=== PATIENT | male | born 1950 | race Asian ===

== ENCOUNTER 2016-07-23 18:50 | Inpatient (IN) | payer BC ==
[~2016-07-23] VITALS: Ht 162.6 cm; Wt 90.7 kg
[2016-07-23 22:27] VITALS: BP 159/99
[2016-07-23] MEDS ORDERED: ASPIRIN81 MG ORAL (22:39)
[2016-07-23] MEDS ORDERED: ATORVASTATIN CA80 MG ORAL (22:39)
[2016-07-24] VITALS: BP 153/98
[2016-07-24 04:00] VITALS: BP 139/94
[2016-07-24 07:50] LABS: BASOPHILS % (AUTO) 1.2 % (0.0-2.0); EOSINOPHILS % (AUTO) 4.1 % (0.0-3.0); LYMPHOCYTES % (AUTO) 29.6 % (20.0-45.0); MEAN CORPUSCULAR HEMOGLOBIN 32.1 PG (27.0-31.0); MEAN CORPUSCULAR HGB CONC 32.6 G/DL (32.0-36.0); MEAN CORPUSCULAR VOLUME 99 FL (80-99); MEAN PLATELET VOLUME 6.7 FL (6.5-10.1); MONOCYTES % (AUTO) 7.6 % (1.0-10.0); NEUTROPHILS % (AUTO) 57.4 % (45.0-75.0); PLATELET COUNT 212 K/UL (150-450); RED BLOOD COUNT 4.78 M/UL (4.70-6.10); RED CELL DISTRIBUTION WIDTH 12.6 % (11.6-14.8); WHITE BLOOD COUNT 8.2 K/UL (4.8-10.8)
[2016-07-24 08:10] LABS: ANION GAP 11 (5-15); CALCIUM 9.1 mg/dL (8.6-10.2); CARBON DIOXIDE 30 mEQ/L (20-30); CHLORIDE 101 mEQ/L (98-107); CHOLESTEROL 158 mg/dL (< 200); CHOLESTEROL/HDL RATIO 5.4 (3.3-4.4); CREATININE 0.9 mg/dL (0.7-1.2); GLOMERULAR FILTRATION RATE > 60 mL/min (>60); HEMOLYSIS 10; LDL CHOLESTEROL (CALC.) 72 mg/dL (60-99); PHOSPHORUS 4.7 mg/dL (2.5-4.8); POTASSIUM 3.7 mEQ/L (3.4-4.9); SODIUM 142 mEQ/L (135-145)
[2016-07-24 08:30] VITALS: BP 138/102
[2016-07-24 12:00] VITALS: BP 152/93
[2016-07-24 16:00] VITALS: BP 134/86
--- NOTE | 2016-07-24 16:14 | Neurology Progress Note ---
Objective Physical Exam Last Vital Signs Date Time Temp Pulse Resp B/P Pulse Ox O2 Delivery O2 Flow Rate FiO2 07/24/16 12:00 97.9 65 20 152/93 Room Air 07/24/16 08:30 95 Laboratory Tests Test 07/24/16 06:50 White Blood Count 8.2 K/UL (4.8-10.8) Red Blood Count 4.78 M/UL (4.70-6.10) Hemoglobin 15.3 G/DL (14.2-18.0) Hematocrit 47.1 % (42.0-52.0) Mean Corpuscular Volume 99 FL (80-99) Mean Corpuscular Hemoglobin 32.1 PG (27.0-31.0) H Mean Corpuscular Hemoglobin Concent 32.6 G/DL (32.0-36.0) Red Cell Distribution Width 12.6 % (11.6-14.8) Platelet Count 212 K/UL (150-450) Mean Platelet Volume 6.7 FL (6.5-10.1) Neutrophils (%) (Auto) 57.4 % (45.0-75.0) Lymphocytes (%) (Auto) 29.6 % (20.0-45.0) Monocytes (%) (Auto) 7.6 % (1.0-10.0) Eosinophils (%) (Auto) 4.1 % (0.0-3.0) H Basophils (%) (Auto) 1.2 % (0.0-2.0) Sodium Level 142 mEQ/L (135-145) Potassium Level 3.7 mEQ/L (3.4-4.9) Chloride Level 101 mEQ/L (98-107) Carbon Dioxide Level 30 mEQ/L (20-30) Anion Gap 11 (5-15) Blood Urea Nitrogen 14 mg/dL (7-23) Creatinine 0.9 mg/dL (0.7-1.2) Estimat Glomerular Filtration Rate > 60 mL/min (>60) Glucose Level 98 mg/dL (74-106) Calcium Level 9.1 mg/dL (8.6-10.2) Phosphorus Level 4.7 mg/dL (2.5-4.8) Magnesium Level 2.0 mg/dL (1.7-2.5) Triglycerides Level 284 mg/dL (< 150) H Cholesterol Level 158 mg/dL (< 200) LDL Cholesterol 72 mg/dL (60-99) HDL Cholesterol 29 mg/dL (> 60) Cholesterol/HDL Ratio 5.4 (3.3-4.4) H Impression/Recommendations Problems: (1) acute ischemic R MCA stroke (2) HTN (hypertension) (3) Nicotine dependence (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
--- NOTE | 2016-07-24 17:21 | History & Physical ---
History and Physical History & Physicial Dictated for Int Med-Dr Lopez no. [id number]. CORINNA RICHEY Jul 24, 2016 17:21
[2016-07-24 20:00] VITALS: BP 131/93
[2016-07-25] VITALS: BP 146/91
--- NOTE | 2016-07-25 02:18 | Consultation ---
DATE OF CONSULTATION: 07/24/2016 NEUROLOGICAL CONSULTATION CONSULTING PHYSICIAN: Tobin Masterson M.D. REQUESTING PHYSICIAN: Dedrick Lopez M.D. HISTORY OF PRESENT ILLNESS: The patient is a 66-year-old [place] man seen in neurological consultation to evaluate acute stroke. According to the patient, on day prior to admission, he woke up in the morning feeling somewhat weak on the left side of the body with numbness in the left leg, he was able to drive himself to a chiropractor, came back and noticing that he actually limping to the left side, a friend of his gave him aspirin. Following day, he felt dizzy, limping more pronounced and more weakness with this, he was taken to [facility]. His blood pressure on admission was 151/108. There is very mild left-sided weakness noted. I was noted stat CT of the brain revealed suspicion for right Whaley radiata area compatible with acute/subacute stroke. His laboratory work revealed presence of a normal electrolytes and elevated triglycerides. He has normal CK, TSH, blood sugar 98 normal lipid panel. EKG with normal sinus rhythm. The CT angiogram of the brain was obtained, revealed no stenosis of intra or extracranial arteries. The patient was also discussed for further diagnostic studies and treatment. The patient has some improvement overnight. Lab work was repeated, normal CBC study. Chemistry panel with . Vital signs monitored with blood pressure somewhat elevated at 152/93 and afebrile. PAST MEDICAL HISTORY: The patient is known to have elevated triglycerides for some time, but he has not taken recommended treatment. He is a smoker one pack per day for 30 years, he has arthritis, left shoulder, given Naprosyn started taking recently. The patient had a upper respiratory infection in the last couple of weeks gradually improving over the last few days. ALLERGIES: None reported. FAMILY HISTORY: Noncontributory. SOCIAL HISTORY: The patient is . His family now is at bedside. 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 No alcohol drug or abuse. REVIEW OF SYSTEMS: Currently, the patient feels slight clumsiness in left side of the body, but no pain, no discomfort. No chest pain. No palpitations. No respiratory problems. No swallowing difficulties. No urine or bowel incontinence. PHYSICAL EXAMINATION: GENERAL: A well-developed, well-nourished man, not in acute distress. VITAL SIGNS: Vital signs are stable. Blood pressure is 148/90 and respirations 18. HEENT: Head, normocephalic. No evidence of trauma. Eyes, ears, and throat are clear. NECK: Supple. No meningeal signs. MUSCULOSKELETAL: Unremarkable. There are no deformities. Tenderness to palpation, left shoulder. Peripheral pulses 1+ and symmetric. MENTAL STATUS: The patient is alert and oriented x3. His speech is fluent. Language is intact. There is no aphasia. No apraxia. Cognitive function is normal. CRANIAL NERVE II: Pupils both responding to light and accommodation. Extraocular movements intact. No nystagmus. CRANIAL NERVE V: Normal corneal responses. CRANIAL NERVE VII: Drooped left nasal fold. CRANIAL NERVE VIII: Normal hearing. CRANIAL NERVES IX THROUGH XII: Tongue is in midline. Symmetric palate elevation. MOTOR EXAMINATION: Normal muscle tone and strength 5-/5 in left upper and left lower extremity noted on pronation drift. Coordination, clumsiness, left finger tapping and clumsiness in left [id number] and heel-orlando test. Deep tendon reflexes 1+, 3+ bilaterally plantar response is mute. SENSORY EXAMINATION: Normal to pin stimulation. Gait, slight limp to the left. IMPRESSION: 1. Acute right middle cerebral artery distribution, ischemic stroke with minor left hemiparesis. 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 3. Hypertension. 4. Hyperlipidemia. 5. Nicotine dependent. DISCUSSION: The patient has several stroke risk factors, including hyperlipidemia and nicotine dependency as well as probably hypertension. DIAGNOSTIC STUDIES: Pending such as MRI of the brain, get a carotid duplex, 2D echocardiogram, repeat lipid panel, coagulation panel, B12, folate, thyroid function, MARCO A, and sedimentation rate. I discussed with the patient presence of stroke risk factors and the ways of avoiding it. The patient meanwhile will continue aspirin and Lipitor 40 mg daily. Thank you for allowing me to see this interesting patient in neurological consultation. Tobin Masterson M.D. DR: Bola JOB#: [id number] CC:
--- NOTE | 2016-07-25 03:28 | History and Physical Report ---
DATE OF ADMISSION: 07/24/2016 CHIEF COMPLAINT: The patient is a 66-year-old, male, presents with complaint of left-sided weakness and numbness. HISTORY OF PRESENT ILLNESS: It began on 07/22/2016. The patient awoke. The patient stated that the left side of his body was numb. This included the left hand and the left foot. On Monday, the patient awoke with weakness of the left hand and left leg. The patient actually fell due to the weakness of his left leg. The patient presented to [facility] emergency room. The patient underwent a CT scan of the brain, which showed hypoattenuation of the right frontal parietal lobe consistent with an acute cerebrovascular accident. The patient is transferred to [facility] for insurance reasons. The patient is admitted with left-sided weakness and numbness to rule out acute cerebrovascular accident. PAST MEDICAL HISTORY: Significant for: 1. Pre diabetes, which is diet-controlled. 2. Hypercholesterolemia. PAST SURGICAL HISTORY: Significant for appendectomy in 1967. CURRENT MEDICATIONS: Naprosyn 500 mg one tablet p.o. twice daily. ALLERGIES: Penicillin. 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 The patient admits to tobacco use of one pack per day for the past 30 years. The patient admits to rare alcohol use. FAMILY HISTORY: Significant for diabetes in patient's father. The patient's father also had a cerebrovascular accident at age 60. REVIEW OF SYSTEMS: Constitutional: The patient denies weight loss or weight gain. The patient denies fevers or chills. Cardiovascular: The patient denies palpitations of chest pain. Chest: The patient denies wheeze or shortness of breath. Abdomen: The patient denies nausea, vomiting, or constipation. Genitourinary: The patient denies dysuria, increased frequency urination. Neuromuscular: The patient complains of left-sided weakness as above. The patient complains of left-sided numbness as above. The patient denies seizures. PHYSICAL EXAMINATION: VITAL SIGNS: Temperature 97.0 degrees, pulse 74, blood pressure 152/98, respiratory rate 16 to 20. GENERAL: The patient is well-developed and well-nourished slightly obese male in no apparent distress. HEENT: Eyes, pupils are equal and responsive to light and accommodation. Extraocular movements are intact. NECK: Supple without lymphadenopathy. CHEST: Lungs are clear to auscultation bilaterally without wheezes or rales. CARDIOVASCULAR: Regular rhythm and rate rate S1, S2. No murmurs, rubs, or gallops. ABDOMEN: Soft, nontender, nondistended. Positive bowel sounds. No evidence of hepatosplenomegaly. Currently, no rebound, guarding. EXTREMITIES: Negative for clubbing, cyanosis, or edema. RECTAL/GENITAL: Refused. NEUROLOGIC: Cranial nerves II through XII are grossly intact without focal deficits. Motor strength is 4/5 on the left and 5/5 on the right. Deep tendon reflexes are 2+ plantar. The patient does have a normal grasp on the right. However, decreased grasp with the left hand. LABORATORY STUDIES: WBC 8.2, hemoglobin 15.3, hematocrit 47.1, and platelets 212,000. Sodium is 142, potassium 3.7, chloride 101, CO2 30, BUN 14, creatinine 0.9, glucose 98, total cholesterol 158, triglycerides elevated to 84. A CT scan from [facility] revealed hypoattenuation of the right humphrey radiata and frontal parietal lobe suggestive of acute ischemic infarct. ASSESSMENT: This is a 66-year-old male: 1. Left paresthesia. 2. Left hemiparesis. 3. Probable acute cerebrovascular accident of the left. 4. Probable acute cerebrovascular accident of the right humphrey radiata and frontal parietal lobe. 5. Hypercholesterolemia. 6. Hypertension. TREATMENT: 1. A Neurology consultation is pending with Dr. Masterson. An MRI of the brain is pending. Carotid duplex Dopplers are pending. An echocardiogram is pending. We will follow recommendations of Neurology. A physical therapy and occupational therapy consultation has been obtained. 2. Hypercholesterolemia. The patient has been started on Lipitor. 3. Hypertension. The patient is currently on clonidine 0.1 mg p.r.n. Norvasc has been added for blood pressure control. Mango Pereira M.D. DR: Venus JOB#: [id number] CC:
[2016-07-25 04:30] VITALS: BP 145/85
[2016-07-25 08:09] VITALS: BP 141/88
[2016-07-25 08:11] LABS: BASOPHILS % (AUTO) 1.2 % (0.0-2.0); EOSINOPHILS % (AUTO) 4.8 % (0.0-3.0); LYMPHOCYTES % (AUTO) 27.3 % (20.0-45.0); MEAN CORPUSCULAR HEMOGLOBIN 33.6 PG (27.0-31.0); MEAN CORPUSCULAR HGB CONC 34.4 G/DL (32.0-36.0); MEAN CORPUSCULAR VOLUME 98 FL (80-99); MEAN PLATELET VOLUME 6.6 FL (6.5-10.1); MONOCYTES % (AUTO) 9.2 % (1.0-10.0); NEUTROPHILS % (AUTO) 57.6 % (45.0-75.0); PLATELET COUNT 192 K/UL (150-450); RED BLOOD COUNT 4.77 M/UL (4.70-6.10); RED CELL DISTRIBUTION WIDTH 12.4 % (11.6-14.8); WHITE BLOOD COUNT 8.2 K/UL (4.8-10.8)
[2016-07-25 08:39] LABS: ANION GAP 14 (5-15); CALCIUM 8.8 mg/dL (8.6-10.2); CARBON DIOXIDE 28 mEQ/L (20-30); CHLORIDE 101 mEQ/L (98-107); CREATININE 0.8 mg/dL (0.7-1.2); GLOMERULAR FILTRATION RATE > 60 mL/min (>60); HEMOLYSIS 28; POTASSIUM 3.7 mEQ/L (3.4-4.9); SODIUM 143 mEQ/L (135-145)
--- NOTE | 2016-07-25 08:54 | Diagnostic Imaging Report ---
Indication: 66-year-old male acute CVA. Left arm and leg weakness Technique: The head was imaged in a 1.5 Letitia magnet. Sequences obtained include sagittal and axial T1 FLAIR, axial T2 fast spin echo with fat saturation, axial T2 FLAIR, diffusion and ADC map. Comparison: None Area of restricted diffusion demonstrated in the right periventricular white matter or coronal radiata in an area that is about 2 cm with about 3 or 4 small cluster foci. Findings consistent with acute CVA. There is no mass effect, midline shift or associated acute intracranial hemorrhage. Scattered, mild periventricular and otherwise matter foci of T2 hyperintense signal consistent chronic small vessel disease. Mild generalized atrophy noted. Corpus callosum is unremarkable. The sella and osseous bone marrow signal appears normal. There is a small air-fluid level in the left maxillary sinus and submucosal thickening in the morning region. Impression: Acute white matter CVA involving the right humphrey radiata. Minimal edema. No acute hemorrhage. Age-related findings as discussed above. Clinical value communication. Findings discussed with Dr. Lopez 07/25/16 8:46 AM
[2016-07-25 11:35] VITALS: BP 127/94
--- NOTE | 2016-07-25 12:00 | Neurology Progress Note ---
Interim History Interim History ROS Limited/Unobtainable: No Complaints: none Events: stable Objective Physical Exam Last Vital Signs Date Time Temp Pulse Resp B/P Pulse Ox O2 Delivery O2 Flow Rate FiO2 07/25/16 11:35 96.9 74 20 127/94 99 Room Air Laboratory Tests Test 07/25/16 07:20 White Blood Count 8.2 K/UL (4.8-10.8) Red Blood Count 4.77 M/UL (4.70-6.10) Hemoglobin 16.0 G/DL (14.2-18.0) Hematocrit 46.6 % (42.0-52.0) Mean Corpuscular Volume 98 FL (80-99) Mean Corpuscular Hemoglobin 33.6 PG (27.0-31.0) H Mean Corpuscular Hemoglobin Concent 34.4 G/DL (32.0-36.0) Red Cell Distribution Width 12.4 % (11.6-14.8) Platelet Count 192 K/UL (150-450) Mean Platelet Volume 6.6 FL (6.5-10.1) Neutrophils (%) (Auto) 57.6 % (45.0-75.0) Lymphocytes (%) (Auto) 27.3 % (20.0-45.0) Monocytes (%) (Auto) 9.2 % (1.0-10.0) Eosinophils (%) (Auto) 4.8 % (0.0-3.0) H Basophils (%) (Auto) 1.2 % (0.0-2.0) Sodium Level 143 mEQ/L (135-145) Potassium Level 3.7 mEQ/L (3.4-4.9) Chloride Level 101 mEQ/L (98-107) Carbon Dioxide Level 28 mEQ/L (20-30) Anion Gap 14 (5-15) Blood Urea Nitrogen 10 mg/dL (7-23) Creatinine 0.8 mg/dL (0.7-1.2) Estimat Glomerular Filtration Rate > 60 mL/min (>60) Glucose Level 103 mg/dL (74-106) Hemoglobin A1c 5.3 % (< 6.0) Calcium Level 8.8 mg/dL (8.6-10.2) General: well developed, well nourished, no acute distress Head: normocophalic, atraumatic Neck: no rigidity, other EENT: benign Neurologic Exam Mental Status: awake, alert, oriented x4, normal cognition, good mathematical skills, normal recent memory, normal remote memory, preserved visuospatial function Speech: normal speech, no dysarthia Language: normal language, no aphasia Cranial Nerve II: fundus normal, visual casper, no papilledema Cranial Nerves III, IV, : PERRLA, EOMI, pupils Cranial Nerve V: normal facial sensations, temporales function normal, masseters function normal, pterygoids function normal Cranial Nerve VII: no facial asymmetry, normal facial expressions Cranial Nerve VIII: normal hearing, no nystagmus Cranial Nerve IX: normal palate elevation, gag response Cranial Nerve X: no voice hoarseness Cranial Nerve XI: SCM symmetric, trapezii function normal Cranial Nerve XII: tongue midline, no tongue atrophy/fasciculations Motor System: normal muscle tone, no involuntary movement, no muscle wasting, other - -5/5L L side Sensory: normal pinprick, normal light touch, normal position sense, normal graphesthesia Coordination: normal finger to nose bilaterally, normal heel to orlando bilaterally, negative Romberg test Deep Tendon Reflexes: 1+ ankle (L), 1+ ankle (R), 1+ bicep (L), 1+ bicep (R), 1 + brachioradialis (L), 1+ brachioradialis (R), 1+ knee (L), 1+ knee (R), 1+ tricep (L), 1+ tricep (R) Reflexes: flexor plantar (L), flexor plantar (R) Stance: normal Gait: stable, normal regular, heel + toe gait Impression/Recommendations Problems: (1) acute ischemic R MCA stroke (2) HTN (hypertension) (3) Nicotine dependence (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
--- NOTE | 2016-07-25 12:59 | Internal Med Progress Note ---
Subjective Date of Service: Jul 25, 2016 Physician Name KelliCorinna Attending Physician Dedrick Lopez MD Current Medications Medications (Trade) Dose Ordered Sig/Silas Route PRN Reason Start Time Stop Time Status Last Admin Dose Admin Acetaminophen (Tylenol) 650 mg Q6H PRN ORAL Mild Pain/Temp > 100.5 07/24/16 00:00 08/23/16 00:00 Amlodipine Besylate (Norvasc) 5 mg DAILY ORAL 07/24/16 18:00 08/23/16 17:59 07/25/16 08:47 Aspirin (ASA) 325 mg DAILY ORAL 07/24/16 09:00 08/23/16 08:59 07/25/16 08:47 Atorvastatin Calcium (Lipitor) 40 mg BEDTIME ORAL 07/24/16 21:00 08/23/16 20:59 07/24/16 22:08 Clonidine HCl (Catapres) 0.1 mg Q4H PRN ORAL SBP>150 or DBP>100 07/24/16 18:00 08/23/16 17:59 Allergies: Coded Allergies: NO KNOWN ALLERGIES (Verified Allergy, Unknown, 07/23/16) ROS Limited/Unobtainable: No Constitutional: Reports: no symptoms HEENT: Reports: no symptoms Cardiovascular: Reports: no symptoms Respiratory: Reports: no symptoms Gastrointestinal/Abdominal: Reports: no symptoms Genitourinary: Reports: no symptoms Neurologic/Psychiatric: Reports: weakness - Left hemiparesis Subjective 66 YO M admitted with left side weakness, now acute CVA. Cover for Int Med-Dr Lopez. Objective Last Vital Signs Date Time Temp Pulse Resp B/P Pulse Ox O2 Delivery O2 Flow Rate FiO2 07/25/16 11:35 96.9 74 20 127/94 99 Room Air General Appearance: WD/WN, no apparent distress, alert EENT: PERRL/EOMI, normal ENT inspection Neck: non-tender, normal alignment, supple, normal inspection Cardiovascular: normal peripheral pulses, normal rate, regular rhythm, no gallop/murmur, no JVD Respiratory/Chest: chest wall non-tender, lungs clear, normal breath sounds, no respiratory distress, no accessory muscle use Abdomen: normal bowel sounds, non tender, soft, no organomegaly, no mass Extremities: other - left weakness 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: 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 grossly normal, other - left weakness Skin: normal pigmentation, warm/dry Laboratory Tests Test 07/25/16 07:20 White Blood Count 8.2 K/UL (4.8-10.8) Red Blood Count 4.77 M/UL (4.70-6.10) Hemoglobin 16.0 G/DL (14.2-18.0) Hematocrit 46.6 % (42.0-52.0) Mean Corpuscular Volume 98 FL (80-99) Mean Corpuscular Hemoglobin 33.6 PG (27.0-31.0) H Mean Corpuscular Hemoglobin Concent 34.4 G/DL (32.0-36.0) Red Cell Distribution Width 12.4 % (11.6-14.8) Platelet Count 192 K/UL (150-450) Mean Platelet Volume 6.6 FL (6.5-10.1) Neutrophils (%) (Auto) 57.6 % (45.0-75.0) Lymphocytes (%) (Auto) 27.3 % (20.0-45.0) Monocytes (%) (Auto) 9.2 % (1.0-10.0) Eosinophils (%) (Auto) 4.8 % (0.0-3.0) H Basophils (%) (Auto) 1.2 % (0.0-2.0) Sodium Level 143 mEQ/L (135-145) Potassium Level 3.7 mEQ/L (3.4-4.9) Chloride Level 101 mEQ/L (98-107) Carbon Dioxide Level 28 mEQ/L (20-30) Anion Gap 14 (5-15) Blood Urea Nitrogen 10 mg/dL (7-23) Creatinine 0.8 mg/dL (0.7-1.2) Estimat Glomerular Filtration Rate > 60 mL/min (>60) Glucose Level 103 mg/dL (74-106) Hemoglobin A1c 5.3 % (< 6.0) Calcium Level 8.8 mg/dL (8.6-10.2) Intake and Output 07/24/16 07/25/16 19:00 07:00 Intake Total 960 ml 120 ml Output Total 2 ml Balance 960 ml 118 ml Intake Oral 960 ml 120 ml Output Urine Total 2 ml # Bowel Movements 1 1 Assessment/Plan Problem List: (1) Hemiparesis, left (2) Hypercholesteremia Assessment & Plan: Cont lipitor (3) Acute CVA (cerebrovascular accident) Assessment & Plan: MRI=Acute CVA right humphrey radiata. See Neuro note. Cont PT/OT/ST. ?acute rehab at [facility] vs SNF (4) HTN (hypertension) Assessment & Plan: Norvasc started 07/24/16. Continue PRN clonidine. Status: not improved Assessment/Plan Discharge planning: Acute rehab at [facility] vs SNF vs Home physical/occupational therapy CORINNA RICHEY Jul 25, 2016 12:59
[2016-07-25 16:00] VITALS: BP 144/87
[2016-07-25 20:00] VITALS: BP 133/91
--- NOTE | 2016-07-26 13:25 | Discharge Summary ---
Discharge Summary Hospital Course Date of Admission Jul 23, 2016 at 21:57 Date of Discharge Jul 25, 2016 at 21:52 Admitting Diagnosis r/o acute CVA Reason for Hospitalization: transferred from [place] to r/o acute CVA HPI Errol Lombardo is a 66 year old male who was admitted on Jul 23, 2016 at 21:57 for Cerebral Vascular Accident/Acute Stroke Symptoms began on 07/22/2016. Upon awakening, the left side of his body ( left hand and left foot) was numb. On 07/23/2016 the patient awoke with further weakness of the left hand and left leg. The patient fell due to the weakness of his left leg. The patient presented to [facility] emergency room. CT scan of the brain,revealed hypoattenuation of the right frontal parietal lobe consistent with an acute cerebrovascular accident. The patient is transferred to [facility] for insurance reasons. The patient is admitted with left-sided weakness and numbness to rule out acute cerebrovascular accident. Consultations dr Masterson Hospital Course tele Neuro followed MRI brain with evidence of acute white matter CVA involving the right humphrey radiata. Minimal edema. No acute hemorrhage. ASA and statin lipid panel stable ECHO with EF 50-55%, no evidence of mural thrombi carotid Duplex essentially negative BP management with CCB and Clonidine prn, stable on current regimen DVT prophylaxis PT./OT fall precautions Neuro cleared for dc home with HH for PT/OT direct care counselor on smoking cessation Nicotine patch Discharge Medications New Medications: Amlodipine Besylate* (Amlodipine Besylate*) 5 Mg Tablet 5 MG ORAL DAILY, #30 TAB Nicotine (Nicotine Patch) 1 Each Patch.dysq 1 EACH TD DAILY, #30 PATCH Continued Medications: Aspirin* (Aspirin*) 81 Mg Tab.chew 81 MG ORAL DAILY, TAB Atorvastatin Calcium* (Lipitor*) 80 Mg Tablet 80 MG ORAL BEDTIME, TAB Discharge Condition Upon Discharge: improving, stable Discharge Disposition Patient was discharged to Home with HH for PT/OT Discharge Diagnoses: (1) acute ischemic R MCA stroke (2) HTN (hypertension) (3) Nicotine dependence (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 I was not involved in the patient management Brianna Sandra NP (Vanchtein) Jul 26, 2016 13:25
[2016-07-26] MEDS ORDERED: NICOTINE PATCH1 EAC5 TD (13:35)
[2016-07-26] MEDS ORDERED: AMLODIPINE BESYL5 MG ORAL (13:35)
--- NOTE | 2016-07-26 17:08 | Cardiology Report ---
APPROVED REPORT EXAM: Two-dimensional and M-mode echocardiogram with Doppler and color Doppler. INDICATION CVA M-Mode DIMENSIONS IVSd0.9 (0.7-1.1cm)Left Atrium (MM)2.9 (1.6-4.0cm) LVDd5.4 (3.5-5.6cm)Aortic Root2.3 (2.0-3.7cm) PWd1.1 (0.7-1.1cm)Aortic Cusp Exc.1.5 (1.5-2.0cm) LVDs3.9 (2.5-4.0cm) PWs1.3 cm Normal left ventricular chamber size, systolic function and wall motion. Left ventricular ejection fraction estimated to be 50-55%. No evidence of left ventricular hypertrophy. No evidence of pericardial fat or effusion. Mild bi-atrial enlargement by 2D. Focal aortic valve sclerosis with adequate cusp excursion Thickened mitral valve leaflets with normal excursion. Mitral annulus and aortic root calcification. Pulmonic valve not well visualized. Normal tricuspid valve structure. IVC is normal in size with physiologic collapse. A color flow and spectral Doppler study was performed and revealed: No aortic regurgitation. Mild mitral regurgitation. Left ventricular diastolic dysfunction grade 1. Mild tricuspid regurgitation. Tricuspid systolic velocities suggests peak right ventricular systolic pressure of 30 mmHg
--- NOTE | 2016-07-26 23:32 | Diagnostic Imaging Report ---
APPROVED REPORT CPT Code: 84830 Vascular Symptoms CVA/TIA: CAROTID (BILATERAL) - Imaging reveals no significant plaque within the right and left extracranial carotid arteries. The Doppler spectral flow analysis is within normal limits throughout the extracranial carotid arteries bilaterally. VERTEBRAL- The vertebral arteries are within normal limits.
--- NOTE | 2016-08-02 14:52 | Diagnostic Imaging Report ---
APPROVED REPORT CPT Code: 65433 Present Symptoms Comments: R/O DVT Hx of CVA BILATERAL: Imaging reveals a patent deep venous system bilaterally. There is no evidence of thrombus within the femoral, popliteal or tibial segments. The greater saphenous veins are also within normal limits. Doppler indicates normal spontaneous flow within these segments.
== END 2016-07-25 21:52 | disposition home or self-care (01) | DRG 65 ==
LOC: 2E 21:57
PROC: B24BZZZ Ultrasonography of Heart with Aorta (ICD-10-PCS; principal; 2016-07-25)
DX: I63.511 Cerebral infarction due to unspecified occlusion or stenosis of right middle cerebral artery (principal); G81.94 Hemiplegia, unspecified affecting left nondominant side; I10 Essential (primary) hypertension; R73.03 Prediabetes; E78.5 Hyperlipidemia, unspecified; E78.00 Pure hypercholesterolemia, unspecified; F17.210 Nicotine dependence, cigarettes, uncomplicated
CPT/HCPCS: 36415; 70551; 80048; 80061; 83036; 83735; 84100; 85025; 93306; 93880; 93970

== ENCOUNTER 2016-08-04 13:25 | Outpatient (RCR) | payer BC ==
[~2016-08-04 13:25] MED LIST: AMLODIPINE BESYL5 MG ORAL; ASPIRIN81 MG ORAL; ATORVASTATIN CA80 MG ORAL; NICOTINE PATCH1 EAC5 TD
== END 2016-08-16 | disposition home or self-care (01) ==
LOC: PTY 13:25
DX: I63.40 Cerebral infarction due to embolism of unspecified cerebral artery (principal)
CPT/HCPCS: 97110; 97140; 97161; G0283

== ENCOUNTER 2016-08-23 09:30 | Outpatient (RCR) | payer BC | END 2016-09-13 | disposition home or self-care (01) | LOC: PTY 09:30 | DX: I63.40 Cerebral infarction due to embolism of unspecified cerebral artery (principal) ==

== ENCOUNTER 2016-10-03 09:10 | Outpatient (RCR) | payer BC | END 2016-10-14 | disposition home or self-care (01) | LOC: PTY 09:10 | DX: I63.40 Cerebral infarction due to embolism of unspecified cerebral artery (principal) | CPT/HCPCS: 97110; G0283 ==